=== PATIENT | male | born 1990 | race Caucasian/White ===

== ENCOUNTER → 2020-05-25 | Outpatient (CLI) | payer OTHER | LOC: COL.RAD 06:47 | DX: S80.02XD Contusion of left knee, subsequent encounter (principal); S76.812D Strain of other specified muscles, fascia and tendons at thigh level, left thigh, subsequent encounter ==

== ENCOUNTER 2020-06-06 12:57 | Outpatient (RCR) | payer OTHER | END 2020-07-31 | disposition home or self-care (01) | LOC: WSOH | DX: S80.02XA Contusion of left knee, initial encounter (principal); F17.210 Nicotine dependence, cigarettes, uncomplicated; Z88.0 Allergy status to penicillin; Y99.0 Civilian activity done for income or pay ==